=== PATIENT | female | born 2000 | race Two or more races ===

== ENCOUNTER 2022-06-15 14:47 | Outpatient (CLI) | payer OTHER | END 2022-06-15 15:42 | disposition home or self-care (01) | LOC: PRENATAL 14:47 | PROVIDERS: ATTEND Obstetrics & Gynecology Maternal & Fetal Medicine | DX: O36.80X0 Pregnancy with inconclusive fetal viability, not applicable or unspecified (principal); Z3A.14 14 weeks gestation of pregnancy ==

== ENCOUNTER 2022-07-23 08:01 | Outpatient (CLI) | payer OTHER | END 2022-07-23 09:36 | disposition home or self-care (01) | LOC: PRENATAL 08:01 | PROVIDERS: ATTEND Obstetrics & Gynecology Maternal & Fetal Medicine | DX: O35.9XX0 Maternal care for (suspected) fetal abnormality and damage, unspecified, not applicable or unspecified (principal); O35.3XX0 Maternal care for (suspected) damage to fetus from viral disease in mother, not applicable or unspecified; Z3A.19 19 weeks gestation of pregnancy ==

== ENCOUNTER 2022-10-22 08:53 | Outpatient (CLI) | payer OTHER | END 2022-10-22 09:53 | disposition home or self-care (01) | LOC: PRENATAL 08:53 | PROVIDERS: ATTEND Obstetrics & Gynecology Maternal & Fetal Medicine | DX: O26.849 Uterine size-date discrepancy, unspecified trimester (principal); O36.8199 Decreased fetal movements, unspecified trimester, other fetus; Z3A.32 32 weeks gestation of pregnancy ==

== ENCOUNTER 2022-11-26 12:47 | Inpatient (IN) | payer OTHER ==
[~2022-11-26] VITALS: Ht 160 cm; Wt 64.4 kg
[2022-12-07] MEDS ORDERED: PRENATAL TABLE1 EAC4 PO (07:06)
[2022-12-07] MEDS ORDERED: FOLIC ACID0.8 M1 PO (07:06)
[2022-12-07 08:09] LABS: HEMATOCRIT 36.5 % (36.0-45.00); HEMOGLOBIN 12.8 g/dL (12.0-15.00); MEAN CELL VOLUME 90.4 fL (80.00-100.00); MEAN CORPUSCULAR HEMOGLOBIN 31.7 pg (27.00-32.0); MEAN CORPUSCULAR HGB CONC 35.1 g/dl (32.0-36.0); PLATELET COUNT 205 K/uL (150-450); RED BLOOD COUNT 4.04 M/uL (4.00-6.00); RED CELL DISTRIBUTION WIDTH 13.9 % (11.5-14.5)
[2022-12-07 08:12] LABS: PH,URINE 7.5 (5.0-8.0); URINE APPEARANCE Turbid; URINE BILIRRUBIN Negative (NEGATIVE); URINE BLOOD Negative; URINE COLOR Yellow; URINE GLUCOSE Negative (NEGATIVE); URINE LEUKOCYTE Trace; URINE NITRATE Negative; URINE PROTEIN 30 (NEGATIVE)
[2022-12-07 08:16] LABS: URINE BACTERIA 2253.9 uL (0.0-1933); URINE EPITHELIAL CELLS 62.9 uL (0.0-38.8); URINE RBC 6.3 uL (0.0-20.8); URINE WBC 14.5 uL (0.0-23.2)
[2022-12-07 08:31] LABS: INR 0.95; PARTIAL THROMBOPLASTIN TIME 29.3 SECONDS (22.0-34.0)
[2022-12-07 08:51] LABS: URINE CRYSTALS MODERATE /HPF
[2022-12-07 18:52] LABS: ABG PH 7.315 (7.35-7.45); ABG PO2 32.1 mmHg (80-100); ABG pCO2 44.1 mmHg (35-45); BASE EXCESS -4.2 mmol/l; BICARBONATE 21.9 mmol/l (23-25); SaO2 54.3 %; Tco2 23.3 mmol/l; o2 21 %
[2022-12-08 06:31] LABS: HEMATOCRIT 36.6 % (36.0-45.00); HEMOGLOBIN 12.5 g/dL (12.0-15.00); MEAN CELL VOLUME 89.9 fL (80.00-100.00); MEAN CORPUSCULAR HEMOGLOBIN 30.8 pg (27.00-32.0); MEAN CORPUSCULAR HGB CONC 34.2 g/dl (32.0-36.0); PLATELET COUNT 209 K/uL (150-450); RED BLOOD COUNT 4.07 M/uL (4.00-6.00); RED CELL DISTRIBUTION WIDTH 14.2 % (11.5-14.5)
== END 2022-12-09 13:51 | disposition home or self-care (01) | DRG 807 ==
LOC: OB/GYN 12-07 06:10 → LDR 12-07 06:10 → OB/GYN 12-07 18:20
PROVIDERS: ADMIT Obstetrics & Gynecology; ATTEND Obstetrics & Gynecology
PROC: 10E0XZZ Delivery of Products of Conception, External Approach (ICD-10-PCS; principal; 2022-12-07)
PROC: 4A1HXCZ Monitoring of Products of Conception, Cardiac Rate, External Approach (ICD-10-PCS; 2022-12-07)
DX: O70.1 Second degree perineal laceration during delivery (principal); Z37.0 Single live birth; Z3A.39 39 weeks gestation of pregnancy; Z20.822 Contact with and (suspected) exposure to COVID-19